=== PATIENT | female | born 1960 | race Two or more races ===

== ENCOUNTER 2016-11-04 17:45 | Emergency (ER) | payer BC ==
[~2016-11-04] VITALS: Ht 157.5 cm; Wt 82.6 kg
--- NOTE | 2016-11-04 18:14 | PHYS DOC ---
Adult General Chief Complaint Chief Complaint: VAGINAL BLEEDING HPI HPI Patient is a 56 year old female who presents with the complaint of vaginal bleeding. The patient speaks very little [place], the housing case manager phone was used to communicate with her. Patient states that she had vaginal bleeding which started Saturday, 11/02. She has had heavy bleeding with clots. Before this, she had gone 8 months without a menstrual period. Prior to that, her periods have been irregular and she might go 2 or 3 months between them. She has had bleeding this heavy before but she thought it was abnormal, but had not seen a doctor about it. She has no [employer] MACHINE [employer]PER[employer] doctor. Since she had not had a period in 8 months she assumed that she was menopausal and was very startled by having heavy vaginal bleeding. She has no other complaints. Review of Systems Review of Systems Constitutional: Denies fever or chills [] Eyes: Denies change in visual acuity, redness, or eye pain [] HENT: Denies nasal congestion or sore throat [] Respiratory: Denies cough or shortness of breath [] Cardiovascular: Denies chest pain GI: Denies abdominal pain, nausea, vomiting, bloody stools or diarrhea [] : As in history of present illness Musculoskeletal: Denies back pain or joint pain [] Integument: Denies rash or skin lesions [] Neurologic: Denies headache, focal weakness or sensory changes [] Allergies Allergies Allergies Coded Allergies Type Severity Reaction Last Updated Verified No Known Drug Allergies 11/04/16 No Physical Exam Physical Exam Constitutional: Well developed, well nourished, no acute distress, non-toxic appearance. Non-tachycardic. HENT: Normocephalic, atraumatic, bilateral external ears normal, nose normal. [ ] Eyes: conjunctiva normal, no discharge. [] Neck: Normal range of motion, no stridor. [] Abdomen: Nondistended, soft, no tenderness, no masses, no pulsatile masses. /pelvic: External genitalia normal. Vaginal vault with moderate amount of blood. Bimanual exam: No cervical motion tenderness. Uterus is enlarged to approximately 12 weeks size, nontender. No adnexal masses or tenderness. Skin: Warm, dry, no erythema, no rash. [] Extremities: No tenderness, no cyanosis, no clubbing, ROM intact, no edema. [] Neurologic: Alert and oriented X 3, normal motor function, normal sensory function, no focal deficits noted. [] Current Patient Data Vital Signs Vital Signs Date Time Temp Pulse Resp B/P Pulse Ox O2 Delivery O2 Flow Rate FiO2 11/04/16 20:17 70 16 100/53 98 Room Air 11/04/16 18:21 98.4 98.4 Lab Values Laboratory Tests Test 11/04/16 18:21 White Blood Count 11.9x10^3/uL (4.0-11.0) H Red Blood Count 4.78x10^6/uL (3.50-5.40) Hemoglobin 13.4g/dL (12.0-15.5) Hematocrit 40.6% (36.0-47.0) Mean Corpuscular Volume 85fL (79-100) Mean Corpuscular Hemoglobin 28pg (25-35) Mean Corpuscular Hemoglobin Concent 33g/dL (31-37) Red Cell Distribution Width 14.2% (11.5-14.5) Platelet Count 323x10^3/uL (140-400) Neutrophils (%) (Auto) 58% (31-73) Lymphocytes (%) (Auto) 32% (24-48) Monocytes (%) (Auto) 7% (0-9) Eosinophils (%) (Auto) 2% (0-3) Basophils (%) (Auto) 1% (0-3) Neutrophils # (Auto) 6.9x10^3uL (1.8-7.7) Lymphocytes # (Auto) 3.8x10^3/uL (1.0-4.8) Monocytes # (Auto) 0.9x10^3/uL (0.0-1.1) Eosinophils # (Auto) 0.2x10^3/uL (0.0-0.7) Basophils # (Auto) 0.1x10^3/uL (0.0-0.2) Sodium Level 143mmol/L (136-145) Potassium Level 3.6mmol/L (3.5-5.1) Chloride Level 109mmol/L (98-107) H Carbon Dioxide Level 24mmol/L (21-32) Anion Gap 10 (6-14) Blood Urea Nitrogen 20mg/dL (7-20) Creatinine 0.7mg/dL (0.6-1.0) Estimated GFR (Cockcroft-Gault) 86.9 BUN/Creatinine Ratio 29 (6-20) H Glucose Level 108mg/dL (70-99) H Calcium Level 9.1mg/dL (8.5-10.1) Total Bilirubin 0.2mg/dL (0.2-1.0) Aspartate Amino Transferase (AST) 12U/L (15-37) L Alanine Aminotransferase (ALT) 16U/L (14-59) Alkaline Phosphatase 91U/L (46-116) Total Protein 8.4g/dL (6.4-8.2) H Albumin 3.5g/dL (3.4-5.0) Albumin/Globulin Ratio 0.7 (1.0-1.7) L Serum Test, Qualitative Negative (NEG) Laboratory Tests 11/04/16 18:21 Laboratory Tests 11/04/16 18:21 EKG EKG [] Radiology/Procedures Radiology/Procedures [] Course & Med Decision Making Course & Med Decision Making Pertinent Labs and Imaging studies reviewed. (See chart for details) I advised the patient we will check some blood tests and perform a pelvic exam and she is agreeable to that plan. Labs unremarkable, the patient is not anemic. Pelvic exam shows enlarged uterus with vaginal bleeding but otherwise no significant findings. The patient does not have a [employer] MACHINE [employer]PERATOR physician so I elected to get a pelvic ultrasound in the ED for workup of her complaint. Pelvic ultrasound read by the radiologist. Uterus is enlarged with marked thickening and vascularity of the endometrium, likely endometrial hyperplasia, endometrial carcinoma is possible. I discussed the patient with Dr. Shabazz, on-call for [employer]ACHINE [employer]PERATOR. She said she will see the patient and her office tomorrow. The patient was given the office phone number to call first thing in the morning for an appointment. The patient is stable for discharge. She is non tachycardic. She is having heavier than usual vaginal bleeding but did not lead excessively while in the emergency department. I believe she is safe to follow up in the office tomorrow. [] Dragon Disclaimer Dragon Disclaimer This electronic medical record was generated, in whole or in part, using a voice recognition dictation system. Departure Departure Impression: Primary Impression: Vaginal bleeding, abnormal Disposition: 01 HOME, SELF-CARE Condition: STABLE Referrals: RAMO ALEX MD Patient Instructions: Postmenopausal Bleeding, [id number] Additional Instructions: Call tomorrow morning and make an appointment to be seen tomorrow by Dr. Shabazz. Drink plenty of fluids. DAVIDA LENTZ MD Nov 04, 2016 18:14
[2016-11-04 18:33] LABS: BASO # 0.1 x10^3/uL (0.0-0.2); BASO % 1 % (0-3); EOS % 2 % (0-3); HEMATOCRIT 40.6 % (36.0-47.0); HEMOGLOBIN 13.4 g/dL (12.0-15.5); LYMPH # 3.8 x10^3/uL (1.0-4.8); LYMPH % 32 % (24-48); MEAN CORPUSCULAR HEMOGLOBIN 28 pg (25-35); MEAN CORPUSCULAR HGB CONC 33 g/dL (31-37); MEAN CORPUSCULAR VOLUME 85 fL (79-100); MONO % 7 % (0-9); NEUT % 58 % (31-73); PLATELET COUNT 323 x10^3/uL (140-400); RED BLOOD COUNT 4.78 x10^6/uL (3.50-5.40); RED CELL DISTRIBUTION WIDTH 14.2 % (11.5-14.5); WHITE BLOOD COUNT 11.9 x10^3/uL (4.0-11.0)
[2016-11-04 18:45] LABS: NEG OBC SER NEG; POS OBC SER POS
[2016-11-04 18:46] LABS: CALCIUM 9.1 mg/dL (8.5-10.1); CREATININE 0.7 mg/dL (0.6-1.0); GFR 86.9; POTASSIUM 3.6 mmol/L (3.5-5.1)
[2016-11-04 18:47] LABS: ALBUMIN 3.5 g/dL (3.4-5.0); ALBUMIN/GLOBULIN RATIO 0.7 (1.0-1.7); TOTAL BILIRUBIN 0.2 mg/dL (0.2-1.0); TOTAL PROTEIN 8.4 g/dL (6.4-8.2)
--- NOTE | 2016-11-04 20:09 | RAD ---
PROCEDURE Transabdominal and transvaginal sonogram HISTORY Heavy vaginal bleeding. Last menstrual period 8 months ago. TECHNIQUE Transabdominal and transvaginal scans were performed. COMPARISON None FINDINGS The uterus measures 10.5 cm in length by 6.3 cm AP by 7.2 cm transversely. There is a thickening of the endometrial echo which is 2.2 centimeters AP. There is increased vascularity to the endometrium and myometrium. No free fluid in the endometrial cavity or myometrial mass is seen. Neither ovary is visualized. No free pelvic fluid is seen. IMPRESSION There is enlargement of the uterus and marked thickening with increased vascularity of the endometrial echo. Findings are likely due to endometrial hyperplasia. Endometrial carcinoma is possible. Correlation with endometrial biopsy is recommended. Neither ovary is visualized on this exam Electronically signed by: Renata Orourke (Nov 04, 2016 20:08:18)
[2016-11-04 20:17] VITALS: BP 100/53
== END 2016-11-04 20:39 | disposition home or self-care (01) ==
LOC: ER 17:45
DX: N93.9 Abnormal uterine and vaginal bleeding, unspecified (principal)
CPT/HCPCS: 36415; 76830; 76856; 80053; 84703; 85027; 99285-25